=== PATIENT | male | born 1990 | race Caucasian/White ===

== ENCOUNTER 2017-10-08 04:19 | Emergency (ER) | payer BC ==
[~2017-10-08] VITALS: Ht 180.3 cm; Wt 102.1 kg
--- NOTE | 2017-10-08 04:30 | NUR ---
TO BED 3 A 26 YO MALE PT BIB FRIEND FROM HOME, PT C/O MID LOWER ABD PAIN X 1 HOUR DENIES N/V/D. PATIENT IS AAOX4, NAD NOTED. VSS. NONDIAPHORETIC. GOWNED. COMFORT MEASURES RENDERED.
[2017-10-08] MEDS ORDERED: DICYCLOMINE HCL INJ 20 MG/2 ML AMPUL IM ONE ×2 (04:50→05:00)
[2017-10-08] MEDS ORDERED: SIMETHICONE 80 MG TAB.CHEW ONE ×2 (04:50)
--- NOTE | 2017-10-08 04:56 | NUR ---
medicated patient as ordered by Dr Waters.
[2017-10-08] MEDS ORDERED: SIMETHICONE 80 MG TAB.CHEW PO ONE (05:00)
[2017-10-08 05:35] VITALS: BP 138/90
--- NOTE | 2017-10-08 05:35 | NUR ---
Patient discharged to home in stable condition. Written and verbal after care instructions given. Patient verbalizes understanding of instruction. Patient is ambulatory with steady gait, no further complaints.
== END 2017-10-08 05:36 | disposition home or self-care (01) ==
LOC: ER 04:25
DX: R10.30 Lower abdominal pain, unspecified (principal); Z88.1 Allergy status to other antibiotic agents
CPT/HCPCS: A4606; J0500; Z7610